=== PATIENT | female | born 2000 | race Caucasian/White ===

== ENCOUNTER 2021-07-04 13:47 | Outpatient (CLI) | payer OTHER | END 2021-07-04 16:48 | disposition home or self-care (01) | LOC: GENOP 13:47 | DX: O47.03 False labor before 37 completed weeks of gestation, third trimester (principal); Z3A.36 36 weeks gestation of pregnancy | CPT/HCPCS: 81001; G0463 ==

== ENCOUNTER 2021-07-21 05:06 | Inpatient (IN) | payer OTHER ==
[~2021-07-21] VITALS: Ht 167.6 cm; Wt 80.7 kg
[2021-07-21] MEDS ORDERED: LAMOTRIGINE150 MG PO (05:41)
[2021-07-21] MEDS ORDERED: LINZESS290 MCG PO (05:41)
[2021-07-21] MEDS ORDERED: FERROUS SULFAT325 MG PO (05:41)
[2021-07-21] MEDS ORDERED: CITALOPRAM HBR40 MG PO (05:42)
[2021-07-21] MEDS ORDERED: DOCUSATE SODIU100 MG PO (05:42)
[2021-07-21] MEDS ORDERED: FAMOTIDINE20 MG PO (05:42)
[2021-07-21] MEDS ORDERED: LACTULOSE10 GM PO (05:43)
[2021-07-21 06:38] LABS: HEMOGLOBIN 12.8 gm/dl (12.3-15.3); RED BLOOD COUNT 4.36 M/UL (4.00-5.10); WHITE BLOOD COUNT 11.3 K/UL (4.5-11.0)
[2021-07-22 04:43] LABS: HEMOGLOBIN 11.5 gm/dl (12.3-15.3)
[2021-07-23] MEDS ORDERED: IBUPROFEN600 MG PO (10:54)
[2021-07-23] MEDS ORDERED: DOCUSATE SODIU250 MG PO (10:54)
== END 2021-07-23 11:43 | disposition home or self-care (01) | DRG 807 ==
LOC: OB 05:06
PROVIDERS: ADMIT Obstetrics & Gynecology
PROC: 10E0XZZ Delivery of Products of Conception, External Approach (ICD-10-PCS; principal; 2021-07-21)
PROC: 0KQM0ZZ Repair Perineum Muscle, Open Approach (ICD-10-PCS; 2021-07-21)
PROC: 4A1HXCZ Monitoring of Products of Conception, Cardiac Rate, External Approach (ICD-10-PCS; 2021-07-21)
PROC: 10907ZC Drainage of Amniotic Fluid, Therapeutic from Products of Conception, Via Natural or Artificial Opening (ICD-10-PCS; 2021-07-21)
PROC: 3E033VJ Introduction of Other Hormone into Peripheral Vein, Percutaneous Approach (ICD-10-PCS; 2021-07-21)
PROC: 3E0234Z Introduction of Serum, Toxoid and Vaccine into Muscle, Percutaneous Approach (ICD-10-PCS; 2021-07-21)
DX: O70.1 Second degree perineal laceration during delivery (principal); Z37.0 Single live birth; Z3A.38 38 weeks gestation of pregnancy; Z20.822 Contact with and (suspected) exposure to COVID-19; O69.81X0 Labor and delivery complicated by cord around neck, without compression, not applicable or unspecified; Z88.8 Allergy status to other drugs, medicaments and biological substances; Z28.310 Unvaccinated for COVID-19; Z23 Encounter for immunization
CPT/HCPCS: 36415; 81001; 82800; 85014; 85018; 85025; 90471; 90715; J2590; J3430; J7120